=== PATIENT | female | born 1990 | race Caucasian/White ===

== ENCOUNTER 2017-10-25 10:08 | Emergency (ER) | payer MEDICAID ==
[~2017-10-25] VITALS: Ht 170.2 cm; Wt 63.5 kg
[2017-10-25] MEDS ORDERED: Hair, Skin & N1 EACH PO (10:28)
[2017-10-25] MEDS ORDERED: FLUC150A PO (11:59)
[2017-10-25] MEDS ORDERED: Norco 10-325 T1 EACH PO (11:59)
[2017-10-25] MEDS ORDERED: Naprosyn500 MG PO (11:59)
== END 2017-10-25 12:24 | disposition home or self-care (01) ==
LOC: ER 10:08
PROVIDERS: Emergency Medicine
DX: N73.9 Female pelvic inflammatory disease, unspecified (principal); Z91.040 Latex allergy status; E11.9 Type 2 diabetes mellitus without complications; F17.210 Nicotine dependence, cigarettes, uncomplicated
CPT/HCPCS: 51798; 76830; 76856; 81000; 81025; 87491; 87591; 87661; 96374; 99284; J0696

== ENCOUNTER 2018-09-13 19:04 | Emergency (ER) | payer OTHER ==
[~2018-09-13] VITALS: Ht 170.2 cm; Wt 59.4 kg
[~2018-09-13 19:04] MED LIST: FLUC150A PO; Hair, Skin & N1 EACH PO; Naprosyn500 MG PO; Norco 10-325 T1 EACH PO
[2018-09-13 19:53] LABS: BASOPHILS ABSOLUTE AUTO 0.01 K/mm3 (0.00-0.23); BASOPHILS PERCENT AUTO 0 % (0-2); EOSINOPHILS ABSOLUTE AUTO 0.01 K/mm3 (0.00-0.68); EOSINOPHILS PERCENT AUTO 0 % (0-6); Hemoglobin 13.3 g/dL (11.5-16.0); IMMATURE GRAN PERCENT AUTO 0 % (0-1); LYMPHOCYTES ABSOLUTE AUTO 0.15 K/mm3 (0.84-5.20); LYMPHOCYTES PERCENT AUTO 4 % (21-46); MONOCYTES ABSOLUTE AUTO 0.36 K/mm3 (0.16-1.47); MONOCYTES PERCENT AUTO 10 % (4-13); Mean Corpuscular HGB 28.2 pg (26.0-34.0); Mean Corpuscular HGB Conc 33.3 g/dL (31.5-36.5); Mean Corpuscular Volume 85 fL (80-100); Mean Platelet Volume 11.6 fL (9.1-12.4); NEUTROPHILS ABSOLUTE AUTO 3.24 K/mm3 (1.96-9.15); NEUTROPHILS PERCENT AUTO 86 % (41-73); Platelet Count 153 K/mm3 (150-400); RDW Coefficient Variation 12.2 % (11.7-14.2); RDW Standard Deviation 37.4 fL (35.1-46.3); Red Blood Cell Count 4.71 M/mm3 (3.80-5.20); White Blood Cell Count 3.77 K/mm3 (4.00-11.30)
[2018-09-13 20:08] LABS: Alanine Aminotransfer (ALT/SGP 22 U/L (12-78); Albumin, Blood 4.4 g/dL (3.4-5.0); Albumin/Globulin Ratio 1.4 (0.8-1.8); Alk Phos 37 U/L (50-136); Anion Gap 9 mmol/L (6-16); Aspartate Aminotrans (AST/SGOT 15 U/L (12-37); Blood Urea Nitrogen 10 mg/dL (8-24); Bun/Creatinine Ratio 15.2 (12.0-20.0); CO2, Blood 25 mmol/L (21-32); Calcium, Blood 8.7 mg/dL (8.5-10.1); Chloride, Blood 104 mmol/L (98-108); Creatinine, Blood 0.66 mg/dL (0.40-1.00); Globulin, Blood 3.2 g/dL (2.2-4.0); Glomerular Filtration Rate >60 (60-); Glucose, Blood 111 mg/dL (70-99); Potassium, Blood 3.3 mmol/L (3.5-5.5); Sodium, Blood 138 mmol/L (136-145); Total Protein, Blood 7.6 g/dL (6.4-8.2)
[2018-09-13 22:16] LABS: Source, Urine Clean Catch
[2018-09-13 22:27] LABS: Appearance, Urine Clear (Clear); Bilirubin, Urine Neg (Neg); Blood, Urine Neg (Neg); Color, Urine Yellow (P-Yellow); Glucose Qualitative, Urine Neg (Neg); Ketones, Urine 2+ (Neg); Leukocyte Esterase, Urine Neg (Neg); Nitrite, Urine Neg (Neg); Protein, Urine Neg (Neg); Specific Gravity, Urine 1.005 (1.003-1.022); Urobilinogen, Urine NORM (Normal)
[2018-09-13 23:56] LABS: Influenza A Negative (NEGATIVE); Influenza B Negative (NEGATIVE)
== END 2018-09-14 02:10 | disposition home or self-care (01) ==
LOC: ER 19:04
PROVIDERS: Emergency Medicine; Physician Assistant
DX: N83.201 Unspecified ovarian cyst, right side (principal); E86.0 Dehydration; B34.9 Viral infection, unspecified; F17.200 Nicotine dependence, unspecified, uncomplicated; Z91.011 Allergy to milk products; Z91.040 Latex allergy status
CPT/HCPCS: 36415; 76830; 76856; 80053; 81003; 81025; 85025; 87804; 96361; 96374; 99284-25; J1885; J7030

== ENCOUNTER 2020-08-16 10:21 | Emergency (ER) | payer OTHER ==
[~2020-08-16] VITALS: Ht 170.2 cm; Wt 70.3 kg
[~2020-08-16 10:21] MED LIST changes: +CYCL10 PO; +IBUP600 PO
[2020-08-16] MEDS ORDERED: Cephalexin500 MG PO (11:25)
[2020-08-16] MEDS ORDERED: IBUP400 PO (11:25)
== END 2020-08-16 11:39 | disposition home or self-care (01) ==
LOC: ER 10:21
DX: L03.116 Cellulitis of left lower limb (principal); F17.210 Nicotine dependence, cigarettes, uncomplicated; Z79.899 Other long term (current) drug therapy
CPT/HCPCS: 99282-25; A9270

== ENCOUNTER 2022-06-07 11:19 | Emergency (ER) | payer OTHER ==
[~2022-06-07] VITALS: Ht 170.2 cm; Wt 77.1 kg
[~2022-06-07 11:19] MED LIST changes: +Cephalexin500 MG PO; +IBUP400 PO
== END 2022-06-07 12:35 | disposition home or self-care (01) ==
LOC: ER 11:19
DX: J06.9 Acute upper respiratory infection, unspecified (principal); E11.9 Type 2 diabetes mellitus without complications; Z91.040 Latex allergy status; Z87.891 Personal history of nicotine dependence; Z79.899 Other long term (current) drug therapy
CPT/HCPCS: 81000